=== PATIENT | female | born 1990 | race Caucasian/White ===

== ENCOUNTER 2018-12-07 21:23 | Inpatient (IN) | payer MEDICARE, MEDICAID ==
[~2018-12-07] VITALS: Ht 132.1 cm; Wt 52.2 kg
[2018-12-07] MEDS ORDERED: SODIUM CHLORIDE 0.9% 1,000 ML IV ONE (21:59)
[2018-12-07] MEDS ORDERED: ONDANSETRON HCL 4MG/2ML INJ IV STA (21:59)
[2018-12-07 22:59] LABS: CLARITY URINE TURBID (CLEAR); COLOR URINE DARK YELLOW (YELLOW); KETONES URINE TRACE (NEGATIVE); LEUKOCYTE ESTERASE URINE 3+ (NEGATIVE); NITRITE URINE NEGATIVE (NEGATIVE); OCCULT BLOOD URINE 2+ (NEGATIVE); PH URINE 5.5 (4.5-8.0); PROTEIN URINE 2+ (NEGATIVE); SPECIFIC GRAVITY URINE 1.023 (1.005-1.030)
[2018-12-08 00:22] LABS: CHLORIDE 91 mEq/L (98-107)
[2018-12-08] MEDS ORDERED: CEFTRIAXONE 1 G PREMIX 50 ML IV SCH ×2 (00:36→21:00)
[2018-12-08] MEDS ORDERED: DOXYCYCLINE HYCLATE 100 MG/VIAL IV ONE (01:00)
[2018-12-08] MEDS ORDERED: SODIUM CHLORIDE 0.9% 1000ML BAG (SEPSIS BOLUS) IV ONE (01:00)
[2018-12-08 07:00] VITALS: BP 94/67
[2018-12-08 07:11] LABS: HCG SCREEN NEGATIVE
[2018-12-08 07:34] LABS: RED BLOOD CELL COUNT 3.67 mill/uL (4.2-5.4)
[2018-12-08 07:35] LABS: HEMATOCRIT. 31.9 % (36.0-48.0); HEMOGLOBIN. 11.4 g/dL (12.0-16.0); MEAN CORPUSCULAR VOLUME 87.1 fL (81.0-99.0); MEAN PLATELET VOLUME 9.1 fl (7.4-10.4); PLATELET 207 x1000/uL (130-400); RED CELL DISTRIBUTION WIDTH 14.7 % (11.6-14.6)
[2018-12-08 07:37] LABS: PLATELET ESTIMATE NORMAL
[2018-12-08] MEDS ORDERED: ONDANSETRON HCL 4MG/2ML INJ IV PRN (08:15)
[2018-12-08] MEDS ORDERED: KETOROLAC 30MG/ML VIAL IV PRN (08:15)
[2018-12-08] MEDS: SODIUM CHLORIDE 0.9% 1,000 ML IV SCH ×3 (09:10→20:53)
[2018-12-08 10:23] LABS: *AMPHETAMINES SCREEN URINE NEGATIVE (NEGATIVE); *BARBITURATES SCREEN URINE NEGATIVE (NEGATIVE); *BENZODIAZEPINES SCREEN URINE NEGATIVE (NEGATIVE); *COCAINE SCREEN URINE NEGATIVE (NEGATIVE)
[2018-12-08 10:24] LABS: CANNABINOID URINE SCREEN NEGATIVE (NEGATIVE); METHADONE URINE SCREEN NEGATIVE (NEGATIVE); OPIATES URINE SCREEN NEGATIVE (NEGATIVE); PHENCYCLIDINE URINE SCREEN NEGATIVE (NEGATIVE)
[2018-12-08 12:00] VITALS: BP 103/59
[2018-12-08 13:00] VITALS: BP 99/65
[2018-12-08] MEDS ORDERED: IPRATROPIUM/ALBUTEROL 0.5-3(2.5)MG/3ML NEB HHN PRN (15:15)
[2018-12-08 16:00] VITALS: BP 89/54
[2018-12-08] MEDS: CEFEPIME 1,000 MG in DEXTROSE 5% WATER 50 ML IV SCH (16:38)
[2018-12-08] MEDS: LORAZEPAM 2MG/ML CPJ IV PRN ×2 (16:39→20:38)
[2018-12-08] MEDS: IPRATROPIUM/ALBUTEROL 0.5-3(2.5)MG/3ML NEB HHN SCH ×2 (17:25→21:18)
[2018-12-08] MEDS: METRONIDAZOLE 500 MG PREMIX 100 ML IV SCH (17:45)
[2018-12-08 20:00] VITALS: BP 94/63
[2018-12-08] MEDS: LEVETIRACETAM 500MG/5ML CUP GT SCH (20:38)
[2018-12-08] MEDS: OXCARBAZEPINE 300MG TABLET GT SCH (20:52)
[2018-12-08] MEDS: ACETAMINOPHEN 325MG TABLET PO PRN (20:52)
[2018-12-08] MEDS: VALPROATE SODIUM 250MG/5ML UDC GT SCH (20:53)
[2018-12-09] VITALS (12 sets, daily range): BP systolic 93–157; BP diastolic 55–103
[2018-12-09] MEDS: LORAZEPAM 2MG/ML CPJ IV PRN ×3 (00:19→14:40)
[2018-12-09] MEDS: METRONIDAZOLE 500 MG PREMIX 100 ML IV SCH ×3 (01:11→18:10)
[2018-12-09] MEDS: ACETYLCYSTEINE 100MG/ML 10% VIAL 4ML INH SCH ×3 (01:16→15:41)
[2018-12-09] MEDS: IPRATROPIUM/ALBUTEROL 0.5-3(2.5)MG/3ML NEB HHN SCH ×6 (01:17→21:10)
[2018-12-09] MEDS: CEFEPIME 1,000 MG in DEXTROSE 5% WATER 50 ML IV SCH ×2 (04:12→16:43)
[2018-12-09] MEDS: VALPROATE SODIUM 250MG/5ML UDC GT SCH ×3 (04:32→22:56)
[2018-12-09] MEDS: OXCARBAZEPINE 300MG TABLET GT SCH ×3 (04:32→22:56)
[2018-12-09 07:08] LABS: BASOPHILS % 0.1 % (0.0-2.0); HEMATOCRIT. 29.2 % (36.0-48.0); HEMOGLOBIN. 9.7 g/dL (12.0-16.0); LYMPHOCYTES % 10.7 % (20.0-50.0); MEAN CORPUSCULAR HEMOGLOBIN 29.5 pg (28.0-32.0); MEAN CORPUSCULAR VOLUME 88.7 fL (81.0-99.0); MEAN PLATELET VOLUME 8.2 fl (7.4-10.4); MONOCYTES % 12.1 % (2.0-8.0); NEUTROPHILS % 77.1 % (40.0-76.0); PLATELET 222 x1000/uL (130-400); RED CELL DISTRIBUTION WIDTH 14.9 % (11.6-14.6)
[2018-12-09 07:20] LABS: CHLORIDE 108 mEq/L (98-107)
[2018-12-09] MEDS ORDERED: LIDOCAINE HCL 1% 20ML VIAL (Pyxis) INJ ONE (08:14)
[2018-12-09] MEDS ORDERED: POTASSIUM CHLORIDE 20MEQ TABLET SR PO SCH (08:15)
[2018-12-09] MEDS: LEVETIRACETAM 500MG/5ML CUP GT SCH ×3 (08:28→20:46)
[2018-12-09] MEDS: POTASSIUM CHLORIDE 20MEQ TABLET SR PO SCH ×2 (08:31→13:42)
[2018-12-09] MEDS: ACETAMINOPHEN 325MG TABLET PO PRN ×2 (08:45→16:32)
[2018-12-09 10:01] LABS: BG CARBOXYHEMOGLOBIN 0.2 % (0.5-1.5); BG FRACTION INSPIRED OXYGEN 28; BG HCO3 ACT 25.8 mmol/L (22.0-26.0); BG METHEMOGLOBIN 0.2 % (0.0-1.5); BG OXYHEMOGLOBIN 95.6 % (94.0-97.0); BG PCO2 37.6 mmHg (35.0-45.0); BG PH 7.455 (7.350-7.450); BG PO2 81.9 mmHg (75.0-100.0); BG SAMPLE SITE RIGHT RADIAL; BG TOTAL HEMOGLOBIN 10.6 g/dL (12.0-18.0); BG VENT MODE NASAL CANNULA
[2018-12-09] MEDS: SODIUM CHLORIDE 0.9% 1,000 ML IV SCH ×2 (13:44→14:15)
[2018-12-10] VITALS (10 sets, daily range): BP systolic 93–120; BP diastolic 55–88
[2018-12-10] MEDS: ACETYLCYSTEINE 100MG/ML 10% VIAL 4ML INH SCH ×2 (00:59→09:21)
[2018-12-10] MEDS: IPRATROPIUM/ALBUTEROL 0.5-3(2.5)MG/3ML NEB HHN SCH ×6 (00:59→20:32)
[2018-12-10] MEDS: METRONIDAZOLE 500 MG PREMIX 100 ML IV SCH ×3 (01:10→19:20)
[2018-12-10] MEDS: SODIUM CHLORIDE 0.9% 1,000 ML IV SCH ×2 (03:04→22:07)
[2018-12-10] MEDS: CEFEPIME 1,000 MG in DEXTROSE 5% WATER 50 ML IV SCH ×2 (04:44→17:17)
[2018-12-10] MEDS: VALPROATE SODIUM 250MG/5ML UDC GT SCH ×3 (05:20→21:32)
[2018-12-10] MEDS: OXCARBAZEPINE 300MG TABLET GT SCH ×3 (05:20→21:32)
[2018-12-10 07:45] LABS: CHLORIDE 102 mEq/L (98-107)
[2018-12-10 07:49] LABS: BASOPHILS % 0.2 % (0.0-2.0); EOSINOPHILS % 0.3 % (0.0-5.0); HEMATOCRIT. 27.3 % (36.0-48.0); HEMOGLOBIN. 9.3 g/dL (12.0-16.0); LYMPHOCYTES % 11.4 % (20.0-50.0); MEAN CORPUSCULAR HEMOGLOBIN 29.6 pg (28.0-32.0); MEAN CORPUSCULAR VOLUME 86.8 fL (81.0-99.0); MEAN PLATELET VOLUME 8.2 fl (7.4-10.4); MONOCYTES % 6.6 % (2.0-8.0); NEUTROPHILS % 81.5 % (40.0-76.0); PLATELET 210 x1000/uL (130-400); RED BLOOD CELL COUNT 3.14 mill/uL (4.2-5.4)
[2018-12-10] MEDS: LEVETIRACETAM 500MG/5ML CUP GT SCH ×2 (09:02→21:32)
[2018-12-10] MEDS ORDERED: POTASSIUM CHLORIDE INJ 40 MEQ in DEXT 5% WATER 250 ML IV SCH (12:00)
[2018-12-11] VITALS (12 sets, daily range): BP systolic 95–125; BP diastolic 48–91
[2018-12-11] MEDS: IPRATROPIUM/ALBUTEROL 0.5-3(2.5)MG/3ML NEB HHN SCH ×6 (00:29→21:00)
[2018-12-11] MEDS: ACETYLCYSTEINE 100MG/ML 10% VIAL 4ML INH SCH ×3 (00:29→15:55)
[2018-12-11] MEDS: METRONIDAZOLE 500 MG PREMIX 100 ML IV SCH ×3 (00:38→17:01)
[2018-12-11] MEDS: CEFEPIME 1,000 MG in DEXTROSE 5% WATER 50 ML IV SCH ×2 (04:38→16:33)
[2018-12-11] MEDS: OXCARBAZEPINE 300MG TABLET GT SCH ×3 (05:25→22:34)
[2018-12-11] MEDS: VALPROATE SODIUM 250MG/5ML UDC GT SCH ×3 (05:25→22:35)
[2018-12-11] MEDS: ACETAMINOPHEN 325MG TABLET PO PRN ×2 (07:50→22:54)
[2018-12-11 07:51] LABS: CHLORIDE 103 mEq/L (98-107)
[2018-12-11 08:24] LABS: BASOPHILS % 0.2 % (0.0-2.0); EOSINOPHILS % 0.3 % (0.0-5.0); HEMATOCRIT. 28.6 % (36.0-48.0); HEMOGLOBIN. 9.8 g/dL (12.0-16.0); MEAN CORPUSCULAR HEMOGLOBIN 29.8 pg (28.0-32.0); MEAN PLATELET VOLUME 8.2 fl (7.4-10.4); MONOCYTES % 9.4 % (2.0-8.0); NEUTROPHILS % 75.1 % (40.0-76.0); PLATELET 269 x1000/uL (130-400); RED BLOOD CELL COUNT 3.29 mill/uL (4.2-5.4); RED CELL DISTRIBUTION WIDTH 14.7 % (11.6-14.6)
[2018-12-11] MEDS: LEVETIRACETAM 500MG/5ML CUP GT SCH ×2 (09:16→22:34)
[2018-12-11] MEDS: SODIUM CHLORIDE 0.9% 1,000 ML IV SCH (09:46)
[2018-12-12] VITALS (12 sets, daily range): BP systolic 93–142; BP diastolic 38–84
[2018-12-12] MEDS: METRONIDAZOLE 500 MG PREMIX 100 ML IV SCH ×3 (00:49→17:49)
[2018-12-12] MEDS: SODIUM CHLORIDE 0.9% 1,000 ML IV SCH ×4 (00:49→23:42)
[2018-12-12] MEDS: ACETYLCYSTEINE 100MG/ML 10% VIAL 4ML INH SCH ×3 (01:28→16:21)
[2018-12-12] MEDS: IPRATROPIUM/ALBUTEROL 0.5-3(2.5)MG/3ML NEB HHN SCH ×6 (01:28→20:15)
[2018-12-12] MEDS: ACETAMINOPHEN 325MG TABLET PO PRN ×2 (03:28→08:55)
[2018-12-12] MEDS: CEFEPIME 1,000 MG in DEXTROSE 5% WATER 50 ML IV SCH ×2 (04:55→17:49)
[2018-12-12] MEDS: VALPROATE SODIUM 250MG/5ML UDC GT SCH ×3 (05:13→21:27)
[2018-12-12] MEDS: OXCARBAZEPINE 300MG TABLET GT SCH ×3 (05:13→21:26)
[2018-12-12 06:39] LABS: BASOPHILS % 0.5 % (0.0-2.0); EOSINOPHILS % 0.5 % (0.0-5.0); HEMATOCRIT. 27.9 % (36.0-48.0); HEMOGLOBIN. 9.6 g/dL (12.0-16.0); LYMPHOCYTES % 27.1 % (20.0-50.0); MEAN CORPUSCULAR HEMOGLOBIN 30.3 pg (28.0-32.0); MEAN CORPUSCULAR VOLUME 87.9 fL (81.0-99.0); MEAN PLATELET VOLUME 8.2 fl (7.4-10.4); MONOCYTES % 10.7 % (2.0-8.0); NEUTROPHILS % 61.2 % (40.0-76.0); PLATELET 283 x1000/uL (130-400); RED BLOOD CELL COUNT 3.18 mill/uL (4.2-5.4); RED CELL DISTRIBUTION WIDTH 15.2 % (11.6-14.6)
[2018-12-12 07:10] LABS: CHLORIDE 106 mEq/L (98-107)
[2018-12-12] MEDS: LEVETIRACETAM 500MG/5ML CUP GT SCH ×2 (08:55→21:27)
[2018-12-12] MEDS: LORAZEPAM 2MG/ML CPJ IV PRN (17:16)
[2018-12-13] VITALS (13 sets, daily range): BP systolic 90–122; BP diastolic 55–86
[2018-12-13] MEDS: ACETYLCYSTEINE 100MG/ML 10% VIAL 4ML INH SCH ×3 (00:04→15:01)
[2018-12-13] MEDS: IPRATROPIUM/ALBUTEROL 0.5-3(2.5)MG/3ML NEB HHN SCH ×5 (00:04→21:36)
[2018-12-13] MEDS: METRONIDAZOLE 500 MG PREMIX 100 ML IV SCH ×2 (01:35→08:32)
[2018-12-13] MEDS: ACETAMINOPHEN 325MG TABLET PO PRN (03:35)
[2018-12-13] MEDS: CEFEPIME 1,000 MG in DEXTROSE 5% WATER 50 ML IV SCH ×2 (04:06→16:49)
[2018-12-13] MEDS: OXCARBAZEPINE 300MG TABLET GT SCH ×3 (05:02→21:43)
[2018-12-13] MEDS: VALPROATE SODIUM 250MG/5ML UDC GT SCH ×3 (05:02→21:44)
[2018-12-13 06:22] LABS: CHLORIDE 104 mEq/L (98-107)
[2018-12-13 06:25] LABS: BASOPHILS % 0.3 % (0.0-2.0); EOSINOPHILS % 1.2 % (0.0-5.0); HEMATOCRIT. 30.2 % (36.0-48.0); HEMOGLOBIN. 10.1 g/dL (12.0-16.0); LYMPHOCYTES % 24.3 % (20.0-50.0); MEAN CORPUSCULAR HEMOGLOBIN 29.5 pg (28.0-32.0); MEAN CORPUSCULAR VOLUME 88.4 fL (81.0-99.0); MEAN PLATELET VOLUME 8.1 fl (7.4-10.4); MONOCYTES % 10.8 % (2.0-8.0); NEUTROPHILS % 63.4 % (40.0-76.0); PLATELET 308 x1000/uL (130-400); RED BLOOD CELL COUNT 3.41 mill/uL (4.2-5.4); RED CELL DISTRIBUTION WIDTH 15.2 % (11.6-14.6)
[2018-12-13] MEDS: LEVETIRACETAM 500MG/5ML CUP GT SCH ×2 (08:32→21:43)
[2018-12-13] MEDS ORDERED: LORAZEPAM 2MG/ML CPJ IV PRN (14:45)
[2018-12-13] MEDS: SODIUM CHLORIDE 0.9% 1,000 ML IV SCH ×2 (16:51→17:36)
[2018-12-13] MEDS: METRONIDAZOLE 500MG TABLET GT SCH (17:28)
[2018-12-14] VITALS (12 sets, daily range): BP systolic 96–135; BP diastolic 51–78
[2018-12-14] MEDS: IPRATROPIUM/ALBUTEROL 0.5-3(2.5)MG/3ML NEB HHN SCH ×6 (01:40→20:46)
[2018-12-14] MEDS: CEFEPIME 1,000 MG in DEXTROSE 5% WATER 50 ML IV SCH ×2 (04:36→17:43)
[2018-12-14] MEDS: SODIUM CHLORIDE 0.9% 1,000 ML IV SCH ×3 (04:36→22:41)
[2018-12-14] MEDS: OXCARBAZEPINE 300MG TABLET GT SCH ×3 (05:01→22:14)
[2018-12-14] MEDS: VALPROATE SODIUM 250MG/5ML UDC GT SCH ×3 (05:01→22:14)
[2018-12-14] MEDS: METRONIDAZOLE 500MG TABLET GT SCH ×2 (05:01→17:42)
[2018-12-14 07:49] LABS: CHLORIDE 115 mEq/L (98-107)
[2018-12-14 09:03] LABS: BASOPHILS % 0.4 % (0.0-2.0); EOSINOPHILS % 2.9 % (0.0-5.0); HEMATOCRIT. 26.3 % (36.0-48.0); HEMOGLOBIN. 8.7 g/dL (12.0-16.0); LYMPHOCYTES % 23.4 % (20.0-50.0); MEAN CORPUSCULAR HEMOGLOBIN 29.2 pg (28.0-32.0); MEAN CORPUSCULAR VOLUME 87.9 fL (81.0-99.0); MEAN PLATELET VOLUME 7.8 fl (7.4-10.4); MONOCYTES % 8.5 % (2.0-8.0); NEUTROPHILS % 64.8 % (40.0-76.0); PLATELET 238 x1000/uL (130-400); RED BLOOD CELL COUNT 2.99 mill/uL (4.2-5.4); RED CELL DISTRIBUTION WIDTH 15.4 % (11.6-14.6)
[2018-12-14] MEDS ORDERED: POTASSIUM CHLORIDE 20MEQ TABLET SR PO NR (11:30)
[2018-12-14] MEDS: LEVETIRACETAM 500MG/5ML CUP GT SCH ×2 (11:37→22:14)
[2018-12-14] MEDS: ACETAMINOPHEN 325MG TABLET PO PRN (14:12)
[2018-12-15] VITALS (12 sets, daily range): BP systolic 97–140; BP diastolic 57–115
[2018-12-15] MEDS: IPRATROPIUM/ALBUTEROL 0.5-3(2.5)MG/3ML NEB HHN SCH ×6 (00:07→21:25)
[2018-12-15] MEDS: CEFEPIME 1,000 MG in DEXTROSE 5% WATER 50 ML IV SCH ×2 (04:40→18:20)
[2018-12-15] MEDS: METRONIDAZOLE 500MG TABLET GT SCH ×2 (04:57→18:26)
[2018-12-15] MEDS: VALPROATE SODIUM 250MG/5ML UDC GT SCH ×3 (04:57→22:49)
[2018-12-15] MEDS: OXCARBAZEPINE 300MG TABLET GT SCH ×3 (04:57→22:49)
[2018-12-15] MEDS: SODIUM CHLORIDE 0.9% 1,000 ML IV SCH (10:16)
[2018-12-15] MEDS: LEVETIRACETAM 500MG/5ML CUP GT SCH (10:21)
[2018-12-15 17:48] LABS: CHLORIDE 105 mEq/L (98-107)
[2018-12-16] VITALS (12 sets, daily range): BP systolic 66–104; BP diastolic 20–63
[2018-12-16] MEDS: IPRATROPIUM/ALBUTEROL 0.5-3(2.5)MG/3ML NEB HHN SCH ×4 (00:13→20:40)
[2018-12-16] MEDS: LEVETIRACETAM 500MG/5ML CUP GT SCH ×3 (00:50→21:22)
[2018-12-16] MEDS: METRONIDAZOLE 500MG TABLET GT SCH (05:38)
[2018-12-16] MEDS: OXCARBAZEPINE 300MG TABLET GT SCH ×3 (05:38→22:01)
[2018-12-16] MEDS: VALPROATE SODIUM 250MG/5ML UDC GT SCH ×3 (05:38→22:01)
[2018-12-16] MEDS: CEFEPIME 1,000 MG in DEXTROSE 5% WATER 50 ML IV SCH (05:45)
[2018-12-16] MEDS: CLONAZEPAM 0.5MG TABLET PO SCH (22:01)
[2018-12-17] VITALS (13 sets, daily range): BP systolic 64–140; BP diastolic 40–98
[2018-12-17] MEDS: IPRATROPIUM/ALBUTEROL 0.5-3(2.5)MG/3ML NEB HHN SCH ×6 (00:43→20:26)
[2018-12-17] MEDS: OXCARBAZEPINE 300MG TABLET GT SCH ×3 (05:14→21:33)
[2018-12-17] MEDS: VALPROATE SODIUM 250MG/5ML UDC GT SCH ×3 (05:14→21:33)
[2018-12-17] MEDS: ASCORBIC ACID 500 MG TABLET GT SCH (09:11)
[2018-12-17] MEDS: LEVETIRACETAM 500MG/5ML CUP GT SCH ×2 (09:11→21:32)
[2018-12-17] MEDS: ZINC SULFATE 220 MG ( 50 ) CAPSULE GT SCH (09:11)
[2018-12-17] MEDS: CLONAZEPAM 0.5MG TABLET PO SCH (21:33)
[2018-12-18] VITALS (11 sets, daily range): BP systolic 92–131; BP diastolic 38–77
[2018-12-18] MEDS: IPRATROPIUM/ALBUTEROL 0.5-3(2.5)MG/3ML NEB HHN SCH ×7 (00:27→23:53)
[2018-12-18] MEDS: VALPROATE SODIUM 250MG/5ML UDC GT SCH ×3 (05:32→21:56)
[2018-12-18] MEDS: OXCARBAZEPINE 300MG TABLET GT SCH ×3 (05:32→21:57)
[2018-12-18] MEDS ORDERED: MIDODRINE HCL 5MG TABLET PO SCH (09:00)
[2018-12-18] MEDS: LEVETIRACETAM 500MG/5ML CUP GT SCH ×2 (09:28→21:55)
[2018-12-18] MEDS: ZINC SULFATE 220 MG ( 50 ) CAPSULE GT SCH (09:28)
[2018-12-18] MEDS: ASCORBIC ACID 500 MG TABLET GT SCH (09:28)
[2018-12-18 13:30] LABS: BASOPHILS % 0.3 % (0.0-2.0); EOSINOPHILS % 1.5 % (0.0-5.0); HEMATOCRIT. 33.6 % (36.0-48.0); HEMOGLOBIN. 11.4 g/dL (12.0-16.0); LYMPHOCYTES % 20.1 % (20.0-50.0); MEAN CORPUSCULAR HEMOGLOBIN 29.5 pg (28.0-32.0); MEAN CORPUSCULAR VOLUME 87.1 fL (81.0-99.0); MEAN PLATELET VOLUME 7.4 fl (7.4-10.4); NEUTROPHILS % 66.1 % (40.0-76.0); PLATELET 318 x1000/uL (130-400); RED BLOOD CELL COUNT 3.86 mill/uL (4.2-5.4); RED CELL DISTRIBUTION WIDTH 15.8 % (11.6-14.6)
[2018-12-18 13:38] LABS: CHLORIDE 98 mEq/L (98-107)
[2018-12-18] MEDS ORDERED: SODIUM CHLORIDE 0.9% 500 ML IV ONE (14:00)
[2018-12-18] MEDS: ENOXAPARIN 40MG/0.4ML SYR SUBCUT SCH (21:54)
[2018-12-18] MEDS: MIDODRINE HCL 5MG TABLET PO SCH (21:56)
[2018-12-19] VITALS (9 sets, daily range): BP systolic 84–123; BP diastolic 53–81
[2018-12-19] MEDS: IPRATROPIUM/ALBUTEROL 0.5-3(2.5)MG/3ML NEB HHN SCH ×5 (04:02→20:35)
[2018-12-19] MEDS: VALPROATE SODIUM 250MG/5ML UDC GT SCH ×3 (06:39→21:43)
[2018-12-19] MEDS: MIDODRINE HCL 5MG TABLET PO SCH ×3 (06:40→21:44)
[2018-12-19] MEDS: OXCARBAZEPINE 300MG TABLET GT SCH ×3 (06:40→21:44)
[2018-12-19] MEDS: LEVETIRACETAM 500MG/5ML CUP GT SCH ×2 (09:00→21:42)
[2018-12-19] MEDS: ZINC SULFATE 220 MG ( 50 ) CAPSULE GT SCH (11:13)
[2018-12-19] MEDS: ASCORBIC ACID 500 MG TABLET GT SCH (11:13)
[2018-12-19] MEDS: CLONAZEPAM 0.5MG TABLET PO SCH ×2 (11:13→18:32)
[2018-12-19] MEDS: ENOXAPARIN 40MG/0.4ML SYR SUBCUT SCH (21:43)
[2018-12-20] VITALS: BP 103/63
[2018-12-20] MEDS: IPRATROPIUM/ALBUTEROL 0.5-3(2.5)MG/3ML NEB HHN SCH ×6 (01:11→20:55)
[2018-12-20 04:00] VITALS: BP 103/64
[2018-12-20] MEDS: OXCARBAZEPINE 300MG TABLET GT SCH ×3 (05:32→22:06)
[2018-12-20] MEDS: MIDODRINE HCL 5MG TABLET PO SCH ×3 (05:32→22:04)
[2018-12-20 06:38] LABS: CHLORIDE 97 mEq/L (98-107)
[2018-12-20 06:39] LABS: BASOPHILS % 0.4 % (0.0-2.0); EOSINOPHILS % 1.2 % (0.0-5.0); HEMATOCRIT. 30.9 % (36.0-48.0); HEMOGLOBIN. 10.4 g/dL (12.0-16.0); LYMPHOCYTES % 15.8 % (20.0-50.0); MEAN CORPUSCULAR HEMOGLOBIN 29.3 pg (28.0-32.0); MEAN CORPUSCULAR VOLUME 86.6 fL (81.0-99.0); MEAN PLATELET VOLUME 7.8 fl (7.4-10.4); NEUTROPHILS % 78.6 % (40.0-76.0); PLATELET 277 x1000/uL (130-400); RED BLOOD CELL COUNT 3.57 mill/uL (4.2-5.4); RED CELL DISTRIBUTION WIDTH 15.1 % (11.6-14.6)
[2018-12-20 08:00] VITALS: BP 115/73
[2018-12-20] MEDS: VALPROATE SODIUM 250MG/5ML UDC GT SCH ×3 (09:00→22:07)
[2018-12-20] MEDS: ASCORBIC ACID 500 MG TABLET GT SCH (09:00)
[2018-12-20] MEDS: LEVETIRACETAM 500MG/5ML CUP GT SCH ×2 (09:00→22:04)
[2018-12-20] MEDS: CLONAZEPAM 0.5MG TABLET PO SCH ×2 (09:00→17:26)
[2018-12-20] MEDS: ZINC SULFATE 220 MG ( 50 ) CAPSULE GT SCH (09:00)
[2018-12-20 12:00] VITALS: BP 93/59
[2018-12-20] MEDS ORDERED: SODIUM CHLORIDE 0.9% 500 ML IV ONE (12:00)
[2018-12-20 16:00] VITALS: BP 124/82
[2018-12-20 20:00] VITALS: BP 107/71
[2018-12-20] MEDS ORDERED: ENOXAPARIN 30MG/0.3ML SYR SUBCUT SCH (21:00)
[2018-12-21] VITALS (7 sets, daily range): BP systolic 109–147; BP diastolic 71–98
[2018-12-21] MEDS: IPRATROPIUM/ALBUTEROL 0.5-3(2.5)MG/3ML NEB HHN SCH ×6 (00:12→20:05)
[2018-12-21] MEDS: MIDODRINE HCL 5MG TABLET PO SCH ×2 (06:14→14:00)
[2018-12-21] MEDS: VALPROATE SODIUM 250MG/5ML UDC GT SCH ×2 (06:14→15:44)
[2018-12-21] MEDS: OXCARBAZEPINE 300MG TABLET GT SCH ×2 (06:15→15:44)
[2018-12-21] MEDS: ASCORBIC ACID 500 MG TABLET GT SCH (09:52)
[2018-12-21] MEDS: ZINC SULFATE 220 MG ( 50 ) CAPSULE GT SCH (09:52)
[2018-12-21] MEDS: CLONAZEPAM 0.5MG TABLET PO SCH ×2 (09:52→16:50)
[2018-12-21] MEDS: LEVETIRACETAM 500MG/5ML CUP GT SCH (09:52)
[2018-12-21] MEDS: ACETAMINOPHEN 325MG TABLET PO PRN (12:35)
== END 2018-12-21 21:05 | DRG 871 ==
LOC: ER 21:23 → 6WST 12-08 00:51 → EDBEDREQ 12-08 01:02 → EDBEDREQTM 12-08 01:02 → EDBEDREQDT 12-08 01:02 → ENRESERV 12-08 06:08 → 5EST 12-09 00:20 → 7WST 12-19 15:13
PROVIDERS: ADMIT Family Medicine Adult Medicine; ATTEND Family Medicine Adult Medicine
PROC: 05HY33Z Insertion of Infusion Device into Upper Vein, Percutaneous Approach (ICD-10-PCS; 2018-12-08)
PROC: B54MZZA Ultrasonography of Right Upper Extremity Veins, Guidance (ICD-10-PCS; 2018-12-08)
PROC: 02HV33Z Insertion of Infusion Device into Superior Vena Cava, Percutaneous Approach (ICD-10-PCS; principal; 2018-12-09)
PROC: B548ZZA Ultrasonography of Superior Vena Cava, Guidance (ICD-10-PCS; 2018-12-09)
DX: A41.51 Sepsis due to Escherichia coli [E. coli] (principal); J69.0 Pneumonitis due to inhalation of food and vomit; J96.00 Acute respiratory failure, unspecified whether with hypoxia or hypercapnia; E43 Unspecified severe protein-calorie malnutrition; N39.0 Urinary tract infection, site not specified; E87.1 Hypo-osmolality and hyponatremia; G40.919 Epilepsy, unspecified, intractable, without status epilepticus; F73 Profound intellectual disabilities; R47.01 Aphasia; G80.9 Cerebral palsy, unspecified; E87.8 Other disorders of electrolyte and fluid balance, not elsewhere classified; R47.02 Dysphasia; E87.6 Hypokalemia; R13.10 Dysphagia, unspecified; K59.00 Constipation, unspecified; L89.899 Pressure ulcer of other site, unspecified stage; Z93.1 Gastrostomy status; Z74.01 Bed confinement status; Z75.1 Person awaiting admission to adequate facility elsewhere; Z68.29 Body mass index [BMI] 29.0-29.9, adult
CPT/HCPCS: 36415; 36600; 71045; 74176; 76937; 80048; 80165; 80305; 81003; 82375; 82805; 83605; 84484; 84703; 87077; 87186; 93005; 93970; 94640; 96374; 96375; 99285; C1725; C1893; J0692; J0696; J1650; J1885; J2060; J2405; J3480; J3490; J7030; J7040; J7060; J7608; J7620; A4315